=== PATIENT | male | born 1970 | race Caucasian/White ===

== ENCOUNTER 2019-07-17 08:09 | Outpatient (RCR) | payer BC, SELFPAY ==
--- NOTE | 2019-07-17 08:57 | PTOPEVAL ---
Thank you for referring this patient to [facility]. Please review, sign, date and return this plan of care DAVID. I agree with and certify that the following plan of care is medically necessary. Referring Physician Date Admitting Provider: Attending Provider: Jackson Garcia MD Referring Provider: *PT Outpatient Evaluation Start: 07/17/19 07:55 Freq: Status: Active Protocol: Document 07/17/19 08:05 J (Rec: 07/17/19 08:50 [facility] [id number]) Therapy Assessment Status Assessment Status Assessment Status Evaluation Outpatient Past Medical History Musculoskeletal History Hx Orthopedic Surgery Yes: meniscus R knee, neck 2007 Evaluation Information Problem Diagnosis C7 cervical radiculopathy Onset 06/12/19 Subjective Information patient reports he injured his Query Text:As Reported By Patient/ neck/R shoulder after loading Family a crossbow for his daughter. he reports he did not have pain initially, but reports he woke up the next day with symptoms in the R neck and shoulder. he reports he has had the same issue with the disc on the L side. he reports he had surgery on the neck back in 2007. Prior Level of Function Comments Additional Prior Level of Function patient reports prior to the Comments injury loading a crossbow, he was able to do all daily activities without pain or issues on the R side of the neck/UE. Pain Assessment Timing of Pain Assessment Timing of Pain Assessment Assessment Pain Scale Pain Scale Used Numeric (1 - 10) Self Report Pain Assessment Neck Reported Pain Level 2 Pain Frequency Acute,Continuous Current Pain Intensity 2 Lowest Pain Intensity 2 Greatest Pain Intensity 2 Pain Score Pain Score 2: Self Report Cervical and Lumbar ROM Cervical ROM Cervical Flexion (0-60) 35 Query Text:Active in Degrees Cervical Extension (0-70) 40 Query Text:Active in Degrees Cervical Lateral Flexion Right (0-50) 30 Query Text:Active in Degrees Cervical Lateral Flexion Left (0-50) 30 Query Text:Active in Degrees Cervical Rotation Right (0-90) 80 Query Text:Active in Degrees Cervical Rotation Left (0-90) 80 Query Text:Active in Degrees Cervical ROM Comment
--- NOTE | 2019-07-31 08:09 | PCPTNOTE ---
patient cancelled appt today. mariposa
--- NOTE | 2019-09-09 08:58 | PCPTNOTE ---
09/09/19 - mr. baumann has not been to therapy in over a month. as of this date, he has been called with no return call to continue or finish his POC. he will be dc'd from skilled PT services and all progress towards goals will be taken from his most recent evaluation/note. DIAMANTE
== END 2019-07-29 09:44 | disposition home or self-care (01) ==
LOC: CHSPT 08:09
PROVIDERS: Visit Provider Internal Medicine
DX: M54.12 Radiculopathy, cervical region (principal); M50.223 Other cervical disc displacement at C6-C7 level
CPT/HCPCS: 97012; 97014; 97110; 97140; 97161; G0283

== ENCOUNTER 2021-02-28 12:47 | Outpatient (CLI) | payer BC, SELFPAY ==
[2021-02-28 14:30] LABS: SARS-CoV-2 RNA PCR Positive (Negative)
== END 2021-02-28 12:48 | disposition home or self-care (01) ==
LOC: CHSLAB 12:50
PROVIDERS: PCP Internal Medicine; Visit Provider Nurse Practitioner Family
DX: U07.1 COVID-19 (principal)
CPT/HCPCS: C9803; U0003; U0005

== ENCOUNTER 2021-03-04 09:26 | Outpatient (CLI) | payer BC, SELFPAY ==
[2021-03-04] MEDS: FAMOTIDINE 20 MG TABLET PO (09:40)
[2021-03-04] MEDS: ACETAMINOPHEN 325 MG TABLET 650 MG PO (09:40)
[2021-03-04] MEDS: diphenhydrAMINE HCl CAP 25 MG CAPSULE PO (09:40)
[2021-03-04 09:50] VITALS: BMI 42.9
[2021-03-04 09:51] VITALS: BP 148/84; PULSE 74; RESP 16; TEMP 36.6; O2SAT 95
[2021-03-04 11:21] VITALS: BP 120/68; PULSE 78; RESP 14; TEMP 37; O2SAT 94
--- NOTE | 2021-03-04 11:23 | PC.NURSE ---
Patient here for meeting criteria of receiving IV CAsirivimab andImdevimab for covid +. Upper respiratory symptoms reported. Permit signed. Medication education given. No concerns. Pre meds po given and IV Casirivima and Imdevimab infusion administered see SEP. Tolerated well. Safe exit of hospital. No s/sx of medication reaction noted or reported.
== END 2021-03-04 09:27 | disposition home or self-care (01) ==
LOC: CHSTREATRM 09:28
PROVIDERS: PCP Internal Medicine; Visit Provider Internal Medicine
DX: Z23 Encounter for immunization (principal); U07.1 COVID-19
CPT/HCPCS: A9270; J7050; M0243

== ENCOUNTER 2021-03-24 11:06 | Emergency (ER) | payer BC, SELFPAY ==
[2021-03-24 11:06] VITALS: BP 142/91; PULSE 84; RESP 20; TEMP 36.4; O2SAT 92
[2021-03-24] MEDS: diphenhydrAMINE HCl CAP 25 MG CAPSULE 50 MG PO (11:10)
[2021-03-24] MEDS: EPINEPHrine HCL INJ 1 MG/ML AMPUL 0.3 MG IM (11:10)
--- NOTE | 2021-03-24 11:32 | ED.ALLEREA ---
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 Patient never had an anaphylactic reaction to insect bites. MD complaint: allergic reaction, hives and facial swelling Onset (ago): hour(s) Exposure: insect bite Symptoms: rash, facial swelling and lip swelling Severity: moderate Treatment prior to arrival: none Previous Allergic Reaction History: none Related Data Allergies Allergy/AdvReac Type Severity Reaction Status Date / Time No Known Allergies Allergy Unverified 09/23/13 16:13 Review of Systems Review of Systems: All systems reviewed & are unremarkable except as noted in HPI and below PMFSH Past Medical History Medical History Patient denies medical problems Social History Social History Smoking status: Never smoker Exam Const: General: no acute distress and alert Orientation/consciousness: patient oriented x3 HENMT: Head: normal to inspection Eyes: Conjunctivae: conjunctivae normal Pupils: Equal, round and reactive pupils present Neck: Neck: normal visual inspection and no meningeal signs Chest: Chest palpation & inspection: normal inspection of the chest Resp: Auscultation: clear to auscultation bilaterally Cardio: Rate: regular rate Rhythm: regular rhythm : Testes: Testes normal Urinary Catheter: Urinary Catheter: patent and draining Skin: General skin exam: normal color Other: urticarial rash diffusely Neuro: General: patient oriented x3, moves all extremities and no meningeal signs Extrem: General: normal to inspection and no pedal edema Psych: Affect: normal affect and Anxious affect present Attitude: cooperative Course Course Emergency Course: patient received epinephrine, Benadryl and Depo-Medrol has a diffuse urticarial rash with no shortness of breath after reassessed patient continues to be comfortable rash improving with some no shortness of breath no audible wheezing no throat closing or numbness. Vital Signs Vital signs: Vital Signs Temperature 36.4 C 03/24/21 11:06 Pulse Rate 84 03/24/21 11:06 Respiratory Rate 20 03/24/21 11:06 Blood Pressure 142/91 H 03/24/21 11:06 Pulse Oximetry 92 03/24/21 11:06 Temperature 36.4 C 03/24/21 11:06 Pulse Rate 84 03/24/21 11:06 Respiratory Rate 20 03/24/21 11:06 Blood Pressure 142/91 H 03/24/21 11:06 Pulse Oximetry 92 03/24/21 11:06 Critical Care Time Critical Care Time Critical Care Time: No Discharge Plan Discharge Clinical Impression: Urticaria Allergic reaction Qualifiers: Encounter type: initial encounter Qualified Code(s): T78.40XA - Allergy, unspecified, initial encounter Patient Disposition: Home, Self-Care Condition: Stable Instructions: Antibiotic Form, Urticaria (ED), Insect Bite or Sting (ED), Allergies (ED) Additional Instructions: Take medicine as prescribed and can return to nearest emergency department if symptoms of shortness of breath or feeling of unable to breathe occur. Prescriptions: New prednisone 20 mg tablet 20 mg PO DAILY 5 Days Qty: 5 RF: 0 epinephrine [EpiPen 2-Lopez] 0.3 mg/0.3 mL auto-injector 0.3 mg IM Q5-15M PRN (Reason: hypersensitivity reaction) Qty: 1 RF: 0 Follow-up/Referrals: Jackson Garcia MD [Primary Care Provider] - Time of Disposition: 11:37
[2021-03-24] MEDS: methylPREDNISolone ACETATE 40 MG/ML VIAL 80 MG IM (11:37)
--- NOTE | 2021-03-24 11:42 | PC.NURSE ---
NEIL Coronado during entirety of ER visit. Error in documentation, Juancarlos TREJO signed into computer.
[2021-03-24 11:48] VITALS: BP 142/89; PULSE 83; RESP 24; O2SAT 95
== END 2021-03-24 11:55 | disposition home or self-care (01) ==
PROVIDERS: Emergency Provider Emergency Medicine; PCP Internal Medicine
DX: L50.9 Urticaria, unspecified (principal); T78.40XA Allergy, unspecified, initial encounter
CPT/HCPCS: 96372; 99283; 99284; A9270; J0171; J1030

== ENCOUNTER 2024-05-25 08:19 | Emergency (ER) | payer BC, SELFPAY ==
[2024-05-25 08:20] VITALS: BP 163/106; PULSE 69; RESP 20; TEMP 36.7; O2SAT 98
--- NOTE | 2024-05-25 08:23 | ED_ITS ---
HPI - General Adult General Chief complaint: Neck Pain/Injury Stated complaint: neck pain History of Present Illness HPI narrative: Junior is a 53M with a PMH of HTN, chronic neck pain and herniated discs in her cervical spine that presented to the ED with posterior neck pain. Pain has gr adually been getting worse for weeks. It is in the posterior neck and radiates to the first 2 digits on the left hand where he has some numbness. There is no weakness, trauma, chest pain, dyspnea, vision changes or anterior neck pain. He has an MRI in 2 days. His main concern today is pain relief as he has been unable to sleep for days d/t the pain but there is no abrupt change in symptoms today. Related Data Home Medications Medication Instructions Recorded Confirmed losartan 25 mg tablet 25 mg PO DAILY 05/25/24 05/25/24 Allergies Allergy/AdvReac Type Severity Reaction Status Date / Time No Known Allergies Allergy Unverified 05/25/24 08:26 Review of Systems Review of Systems: All systems reviewed & are unremarkable except as noted in HPI and below PMFSH Past Medical History Medical History Patient denies medical problems Social History Social History Smoking status: Never smoker Exam Const: General: cooperative, healthy appearing, comfortable, no acute distress, well developed, alert, awake and Physically active Orientation/consciousness: oriented to person, oriented to place and oriented to time HENMT: Head: normal to inspection, normocephalic and atraumatic Ears: hearing grossly normal bilaterally and external ears normal Face/Nose/Sinus: Normal external nose present Eyes: General: appearance normal, both eyes and all related structures Periorbital: periorbital findings normal Sclera: sclerae normal Pupils: Equal, round and reactive pupils present Neck: Neck: normal visual inspection Other: No TTP of the anterior spine. Full active ROM in the cervical spine. + Spurling maneuver. Chest: Chest palpation & inspection: normal inspection of the chest Resp: Effort & Inspection: normal respiratory effort, able to speak in complete sentences and no respiratory distress Cardio: Rate: regular rate Skin: General skin exam: normal color and no rashes or lesions noted Neuro: General: oriented to person, oriented to place and oriented to time Cranial nerves: Yes Equal, round and reactive pupils present Speech: normal speech Gait exam (Neuro): Normal gait present Extrem: General: normal to inspection Other: Normal gait 5/5 strength throughout the upper extremities. Course Course Emergency Course: Given Toradol and gabapentin for pain. Given there are no new symptoms, weakness, injury or trauma acute injury, severe cord compression is unlikely. As he has an MRI in 2 days will hold off on imaging. He was told to return immediately if any symptoms change, or he experiences more pain or weakness. Discharge Plan Discharge Clinical Impression: Cervical radiculopathy Patient Disposition: Home, Self-Care Condition: Stable Instructions: Cervical Radiculopathy (ED) Prescriptions: New hydrocodone-acetaminophen 5-325 mg tablet 1 tablet PO Q8H PRN (Reason: pain) Qty: 10 0RF gabapentin 300 mg capsule 300 mg PO TID Qty: 21 0RF No Action losartan 25 mg tablet 25 mg PO DAILY epinephrine [EpiPen 2-Lopez] 0.3 mg/0.3 mL auto-injector 0.3 mg IM Q5-15M PRN (Reason: hypersensitivity reaction) Qty: 1 0RF Rx Instructions: do not exceed 3 doses per episode Follow-up/Referrals: UNKNOWN,DOCTOR [Primary Care Provider] -
[2024-05-25] MEDS: KETOROLAC 30 MG/ML VIAL (*BKC) IM (08:32)
[2024-05-25] MEDS: GABAPENTIN 300 MG CAPSULE PO (08:33)
== END 2024-05-25 08:48 | disposition home or self-care (01) ==
LOC: CHSED 08:53
PROVIDERS: Emergency Provider Family Medicine
DX: M54.12 Radiculopathy, cervical region (principal); I10 Essential (primary) hypertension; Z79.899 Other long term (current) drug therapy
CPT/HCPCS: 96372; 99283; A9270; J1885